=== PATIENT | male | born 1960 | race Caucasian/White ===

== ENCOUNTER 2016-12-01 15:55 | Emergency (ER) | payer OTHER | END 2016-12-01 17:52 | disposition left against medical advice (07) | LOC: UCCORT 15:55 | DX: M54.9 Dorsalgia, unspecified (principal); Z53.21 Procedure and treatment not carried out due to patient leaving prior to being seen by health care provider ==

== ENCOUNTER 2017-08-07 15:56 | Emergency (ER) | payer OTHER ==
[2017-08-07] MEDS ORDERED: Acetaminophen TAB* 325 MG PO ONE (16:32)
[2017-08-07 16:35] VITALS: BP 148/80
--- NOTE | 2017-08-07 16:51 | UC ---
FLU HPI - HPI Summary HPI Summary: Pt c/o sudden onset of fever, chills, body aches, cough and generalized malaise. - History of Current Complaint Chief Complaint: UCGeneralIllness Stated Complaint: CONGESTION,COUGH,HEADACHE,BODY ACHES Time Seen by Provider: 08/07/17 16:25 Hx Obtained From: Patient Onset/Duration: Sudden Onset, Lasting Hours Severity Currently: Moderate Severity Initially: Moderate Associated Signs & Symptoms: Positive: Fever, Myalgia, Cough Related Hx: Smoking - Allergy/Home Medications Allergies/Adverse Reactions: Allergies Allergy/AdvReac Type Severity Reaction Status Date / Time No Known Allergies Allergy Verified 08/07/17 16:22 PMH/Surg Hx/FS Hx/Imm Hx Previously Healthy: Yes - Surgical History Surgical History: Yes Surgery Procedure, Year, and Place: 06/2013 back surgery lumbar region - Family History Known Family History: Positive: Cardiac Disease - father, Hypertension - Social History Occupation: Employed Full-time Lives: With Family Alcohol Use: Rare Substance Use Type: None Smoking Status (MU): Heavy Every Day Tobacco Smoker Type: Cigarettes Amount Used/How Often: 1 ppd Have You Smoked in the Last Year: Yes Household Exposure Type: Cigarettes - Immunization History Most Recent Influenza Vaccination: 08/04/17 Review of Systems Constitutional: Fever, Chills, Fatigue Skin: Negative Eyes: Negative ENT: Negative Respiratory: Cough Cardiovascular: Negative Gastrointestinal: Nausea Genitourinary: Negative Motor: Negative Neurovascular: Negative Musculoskeletal: Myalgia Neurological: Headache Psychological: Negative Is Patient Immunocompromised?: No All Other Systems Reviewed And Are Negative: Yes Physical Exam Triage Information Reviewed: Yes Appearance: Ill-Appearing Vital Signs: Initial Vital Signs Temp 100.5 F 08/07/17 16:17 Pulse 85 08/07/17 16:17 Resp 16 08/07/17 16:17 BP 148/80 08/07/17 16:17 Pulse Ox 97 08/07/17 16:17 Vital Signs Reviewed: Yes Eye Exam: Normal Dental Exam: Normal Neck exam: Normal Respiratory Exam: Normal Cardiovascular Exam: Normal Musculoskeletal Exam: Normal Neurological Exam: Normal Psychological Exam: Normal Skin Exam: Normal Flu Course/Dx - Course Course Of Treatment: rapid: positive flu - Differential Dx/Diagnosis Differential Diagnosis/HQI/PQRI: Influenza, Upper Respiratory Infection Provider Diagnoses: Influenza Discharge - Discharge Plan Condition: Stable Disposition: HOME Patient Education Materials: Influenza (ED) Referrals: Yrn Mora MD [Primary Care Provider] - If Needed
== END 2017-08-07 16:55 | disposition home or self-care (01) ==
LOC: UCCORT 15:56
DX: J11.1 Influenza due to unidentified influenza virus with other respiratory manifestations (principal); Z72.0 Tobacco use
CPT/HCPCS: 87502; 99212; A9270-GY; G0463

== ENCOUNTER 2017-12-06 16:02 | Emergency (ER) | payer OTHER ==
[2017-12-06 16:47] VITALS: BP 130/79
--- NOTE | 2017-12-06 17:08 | UC ---
Respiratory Complaint HPI - HPI Summary HPI Summary: 57 yo WM who quit smoking 3 m ago c/o pleuritic cough with green sputum x 1 week , coughs incessantly at night and keeps him awake. Denies f/c - History of Current Complaint Chief Complaint: UCRespiratory Stated Complaint: COUGH Time Seen by Provider: 12/06/17 16:40 Hx Obtained From: Patient Onset/Duration: Lasting Days Severity Initially: Moderate Severity Currently: Moderate Pain Intensity: 5 Aggravating Factors: Nothing Associated Signs And Symptoms: Positive: Negative - Allergies/Home Medications Allergies/Adverse Reactions: Allergies Allergy/AdvReac Type Severity Reaction Status Date / Time No Known Allergies Allergy Verified 12/06/17 16:40 Home Medications: Home Medications Acetaminophen [Acetaminophen Extra Strength] 1,000 mg PO Q6H PRN 12/06/17 [ History Confirmed 12/06/17] Lisinopril TAB* [Prinivil TAB 10 MG*] 40 mg PO BID 12/06/17 [History Confirmed 12/06/17] Metoprolol Succinate XL TAB* [Toprol XL TAB*] 100 mg PO QAM 12/06/17 [History Confirmed 12/06/17] PMH/Surg Hx/FS Hx/Imm Hx Previously Healthy: Yes Respiratory History: COPD - Surgical History Surgical History: Yes Surgery Procedure, Year, and Place: [place]umber Fusion, 2012, [place] - Family History Known Family History: Positive: Cardiac Disease - father, Hypertension - Social History Alcohol Use: Rare Substance Use Type: None Smoking Status (MU): Former Smoker Type: Cigarettes Amount Used/How Often: 1 ppd Length of Time of Smoking/Using Tobacco: 1 - 1 1/2 PPD x 41 Years Have You Smoked in the Last Year: Yes When Did the Patient Quit Smoking/Using Tobacco: 08/2017 Household Exposure Type: Cigarettes - Immunization History Most Recent Influenza Vaccination: 08/04/17 Review of Systems Constitutional: Negative Skin: Negative Eyes: Negative Respiratory: Cough Cardiovascular: Negative Gastrointestinal: Negative Genitourinary: Negative Motor: Negative Neurovascular: Negative Musculoskeletal: Negative Neurological: Negative Psychological: Negative All Other Systems Reviewed And Are Negative: Yes Physical Exam Triage Information Reviewed: Yes Appearance: Pain Distress Vital Signs: Initial Vital Signs Temp 37.3 C 12/06/17 16:38 Pulse 76 12/06/17 16:38 Resp 16 12/06/17 16:38 BP 130/79 12/06/17 16:38 Pulse Ox 97 12/06/17 16:38 Vital Signs Reviewed: Yes Eye Exam: Normal ENT Exam: Normal Dental Exam: Normal Neck exam: Normal Neck: Positive: 1 Respiratory Exam: Normal Respiratory: Positive: No respiratory distress, Rhonchi - with cough. Negative : Crackles, Stridor, Wheezing Cardiovascular Exam: Normal Abdominal Exam: Normal Musculoskeletal Exam: Normal Neurological Exam: Normal Psychological Exam: Normal Skin Exam: Normal UC Diagnostic Evaluation - Laboratory O2 Sat by Pulse Oximetry: 97 Respiratory Course/Dx - Differential Dx/Diagnosis Provider Diagnoses: Bronchitis. Productive cough Discharge - Sign-Out/Discharge Documenting (check all that apply): Discharge/Admit/Transfer - Discharge Plan Condition: Stable Disposition: HOME Prescriptions: Azithromycin TAB* [Zithromax TAB (Z-ADILENE) 250 mg #6 tabs] 2 tab PO .TODAY, THEN 1 DAILY #1 adilene Guaifenesin/Dextromethorphan [Zyncof 400-20 mg Tablet] 1 tab PO BID 10 Days #20 tab Promethazine/Phenyleph/Codeine [Promethazine Vc/Codeine] 5 ml PO Q6HR PRN 7 Days #1 btl MDD 20 ML PRN Reason: Cough Patient Education Materials: Acute Bronchitis (ED) Referrals: Yrn Mora MD [Primary Care Provider] - - Billing Disposition and Condition Condition: STABLE Disposition: HOME
== END 2017-12-06 17:08 | disposition home or self-care (01) ==
LOC: UCCORT 16:02
DX: J40 Bronchitis, not specified as acute or chronic (principal); Z87.891 Personal history of nicotine dependence
CPT/HCPCS: 99212; G0463

== ENCOUNTER 2017-12-08 18:14 | Emergency (ER) | payer OTHER ==
[2017-12-08 19:38] VITALS: BP 166/68
--- NOTE | 2017-12-08 20:13 | UC ---
Throat Pain/Nasal David HPI - HPI Summary HPI Summary: c/o persistent dry cough despite cough syrup and zithromax, now on day 3. Denies fever or sputum production. - History of Current Complaint Chief Complaint: UCRespiratory Stated Complaint: SORE THROAT Time Seen by Provider: 12/08/17 20:05 Hx Obtained From: Patient Onset/Duration: Gradual Onset, Lasting Days Severity: Moderate Pain Intensity: 5 Cough: Nonproductive Associated Signs & Symptoms: Positive: Negative - Epiglottits Risk Factors Epiglottis Risk Factors: Negative - Allergies/Home Medications Allergies/Adverse Reactions: Allergies Allergy/AdvReac Type Severity Reaction Status Date / Time No Known Allergies Allergy Verified 12/08/17 19:40 PMH/Surg Hx/FS Hx/Imm Hx Cardiovascular History: Hypertension - Surgical History Surgical History: Yes Surgery Procedure, Year, and Place: [place] Fusion, 2012, [place] - Family History Known Family History: Positive: Cardiac Disease - father, Hypertension - Social History Alcohol Use: Rare Substance Use Type: None Smoking Status (MU): Former Smoker Type: Cigarettes Amount Used/How Often: 1 ppd Length of Time of Smoking/Using Tobacco: 1 - 1 1/2 PPD x 41 Years Have You Smoked in the Last Year: Yes When Did the Patient Quit Smoking/Using Tobacco: 08/2017 Household Exposure Type: Cigarettes - Immunization History Most Recent Influenza Vaccination: 08/04/17 Review of Systems Constitutional: Negative Respiratory: Cough All Other Systems Reviewed And Are Negative: Yes Physical Exam Triage Information Reviewed: Yes Appearance: No Pain Distress, Well-Nourished, Ill-Appearing Vital Signs: Initial Vital Signs Temp 98.4 F 12/08/17 19:32 Pulse 72 12/08/17 19:32 Resp 16 12/08/17 19:32 BP 166/68 12/08/17 19:32 Pulse Ox 95 12/08/17 19:32 Vital Signs Reviewed: Yes Eyes: Positive: Conjunctiva Clear ENT: Positive: Hearing grossly normal Neck: Positive: Supple, Nontender, No Lymphadenopathy Respiratory: Positive: Chest non-tender, Lungs clear, Normal breath sounds, No respiratory distress Cardiovascular: Positive: RRR, No Murmur, Pulses Normal, Brisk Capillary Refill Throat Pain/Nasal Course/Dx - Course Course Of Treatment: reactive airway disease to start flovent diskus as prescribed, continue current medications, f/u PCP in 1-2 weeks - Differential Dx/Diagnosis Provider Diagnoses: reactive airway disease Discharge - Sign-Out/Discharge Documenting (check all that apply): Discharge/Admit/Transfer - Discharge Plan Condition: Stable Disposition: HOME Patient Education Materials: Reactive Airways Disease (ED) Referrals: Yrn Mora MD [Primary Care Provider] - - Billing Disposition and Condition Condition: STABLE Disposition: HOME
== END 2017-12-08 20:25 | disposition home or self-care (01) ==
LOC: UCCORT 18:14
DX: J45.909 Unspecified asthma, uncomplicated (principal); Z87.891 Personal history of nicotine dependence
CPT/HCPCS: 87651; 99212; G0463

== ENCOUNTER 2018-08-01 07:26 | Emergency (ER) | payer OTHER ==
[2018-08-01 08:02] VITALS: BP 152/90
--- NOTE | 2018-08-01 08:47 | ED ---
Respiratory - HPI Summary HPI Summary: 58 yrold male with the complaint of sore throat, coughing, myalgias, chills. Onset yesterday. Symptoms are moderate. He denies runny nose. Denies sinus pain. Denies SOB, CP. The patient denies skin rash. He has no other complaints. - History of Current Complaint Chief Complaint: UCGeneralIllness Stated Complaint: HEADACHE,COUGH,NAUSEA Time Seen by Provider: 08/01/18 08:17 Pain Intensity: 5 - Allergy/Home Medications Allergies/Adverse Reactions: Allergies Allergy/AdvReac Type Severity Reaction Status Date / Time No Known Allergies Allergy Verified 12/08/17 19:40 PMH/Surg Hx/FS Hx/Imm Hx Endocrine/Hematology History: Denies: Hx Diabetes Cardiovascular History: Reports: Hx Hypertension - on medication Respiratory History: Denies: Hx Asthma - Surgical History Surgery Procedure, Year, and Place: [place]umber Fusion, 2012, [place] Infectious Disease History: No Infectious Disease History: Denies: Hx Clostridium Difficile, Hx Hepatitis, Hx Human Immunodeficiency Virus (HIV), Hx of Known/Suspected MRSA, Hx Shingles, Hx Tuberculosis, Hx Known/ Suspected VRE, Hx Known/Suspected VRSA, History Other Infectious Disease, Traveled Outside the [place] in Last 30 Days - Family History Known Family History: Positive: Cardiac Disease - father, Hypertension - Social History Occupation: Employed Full-time Alcohol Use: Rare Substance Use Type: Reports: None Smoking Status (MU): Former Smoker Type: Cigarettes Amount Used/How Often: 1 ppd Length of Time of Smoking/Using Tobacco: 1 - 1 1/2 PPD x 41 Years Have You Smoked in the Last Year: Yes Review of Systems Positive: Chills Positive: Sore Throat Positive: Cough Positive: Myalgia All Other Systems Reviewed And Are Negative: Yes Physical Exam Triage Information Reviewed: Yes Vital Signs On Initial Exam: Initial Vitals Temp Pulse Resp BP Pulse Ox 98.8 F 78 17 152/90 96 08/01/18 07:58 08/01/18 07:58 08/01/18 07:58 08/01/18 07:58 08/01/18 07:58 Vital Signs Reviewed: Yes Appearance: Positive: Well-Appearing, No Pain Distress Skin: Positive: Warm, Skin Color Reflects Adequate Perfusion Head/Face: Positive: Normal Head/Face Inspection Eyes: Positive: EOMI ENT: Positive: Pharyngeal erythema, TMs normal Neck: Positive: Nontender Respiratory/Lung Sounds: Positive: Clear to Auscultation, Breath Sounds Present Cardiovascular: Positive: RRR. Negative: Murmur Abdomen Description: Positive: Nontender Musculoskeletal: Positive: Strength/ROM Intact Neurological: Positive: Sensory/Motor Intact, Alert, Oriented to Person Place, Time, CN Intact II-III Psychiatric: Positive: Normal - Leonardo Coma Scale Best Eye Response: 4 - Spontaneous Best Motor Response: 6 - Obeys Commands Best Verbal Response: 5 - Oriented Coma Scale Total: 15 Diagnostics - Vital Signs Vital Signs Temp Pulse Resp BP Pulse Ox 08/01/18 07:58 98.8 F 78 17 152/90 96 - Laboratory Lab Statement: Any lab studies that have been ordered have been reviewed, and results considered in the medical decision making process. Disposition - Course Course Of Treatment: 58 yrold with Cough, URI. - Diagnoses Provider Diagnoses: Upper respiratory infection, Hypertension Discharge - Sign-Out/Discharge Documenting (check all that apply): Patient Departure All imaging exams completed and their final reports reviewed: No Studies - Discharge Plan Condition: Stable Disposition: HOME Patient Education Materials: Upper Respiratory Infection (ED), Hypertension (ED ) Referrals: Yrn Mora MD [Primary Care Provider] - 2 Days - Billing Disposition and Condition Condition: STABLE Disposition: Home
== END 2018-08-01 09:23 | disposition home or self-care (01) ==
LOC: UCCORT 07:26
DX: J06.9 Acute upper respiratory infection, unspecified (principal); I10 Essential (primary) hypertension; Z87.891 Personal history of nicotine dependence
CPT/HCPCS: 99211; G0463

== ENCOUNTER 2019-02-14 16:42 | Emergency (ER) | payer OTHER ==
[2019-02-14 17:49] VITALS: BP 127/81
--- NOTE | 2019-02-14 18:35 | UC ---
HPI Wound/Suture Re-check - HPI Summary HPI Summary: Pt presents for removal of sutures in right knee that were placed here on . Pt thinks he has 5 sutures. - History Of Current Complaint Chief Complaint: UCGeneralIllness Stated Complaint: Stitch removal Time Seen by Provider: 02/14/19 17:52 Hx Obtained From: Patient Onset/Duration: Sudden Onset Pain Intensity: 0 Pain Scale Used: 0-10 Numeric - Allergies/Home Medications Allergies/Adverse Reactions: Allergies Allergy/AdvReac Type Severity Reaction Status Date / Time No Known Allergies Allergy Verified 02/14/19 17:45 PMH/Surg Hx/FS Hx/Imm Hx Previously Healthy: Yes - Surgical History Surgical History: Yes Surgery Procedure, Year, and Place: [place] Fusion, 2012, [place] - Family History Known Family History: Positive: Cardiac Disease - father, Hypertension - Social History Occupation: Employed Full-time Lives: With Family Alcohol Use: Rare Substance Use Type: None Smoking Status (MU): Light Every Day Tobacco Smoker Type: Cigarettes Amount Used/How Often: 1/4 ppd Length of Time of Smoking/Using Tobacco: 1 - 1 1/2 PPD x 41 Years Have You Smoked in the Last Year: Yes When Did the Patient Quit Smoking/Using Tobacco: 08/2017 Household Exposure Type: Cigarettes - Immunization History Most Recent Influenza Vaccination: 08/04/17 Vaccination Up to Date: Yes Review of Systems All Other Systems Reviewed And Are Negative: Yes Constitutional: Positive: Negative Skin: Positive: Other - sutures intact. Eyes: Positive: Negative ENT: Positive: Negative Respiratory: Positive: Negative Cardiovascular: Positive: Negative Gastrointestinal: Positive: Negative Genitourinary: Positive: Negative Motor: Positive: Negative Neurovascular: Positive: Negative Musculoskeletal: Positive: Arthralgia - right knee, Edema - right knee slight swelling, Myalgia Neurological: Positive: Negative Psychological: Positive: Negative Is Patient Immunocompromised?: Yes Physical Exam Triage Information Reviewed: Yes Appearance: Well-Appearing Vital Signs: Initial Vital Signs Temp 97.9 F 02/14/19 17:46 Pulse 60 02/14/19 17:46 Resp 16 02/14/19 17:46 BP 127/81 02/14/19 17:46 Pulse Ox 99 02/14/19 17:46 Vital Signs Reviewed: Yes Eye Exam: Normal ENT Exam: Normal Dental Exam: Normal Neck exam: Normal Respiratory Exam: Normal Respiratory: Positive: No respiratory distress Musculoskeletal Exam: Normal Neurological Exam: Normal Psychological Exam: Normal Skin Exam: Normal - sutures intact and three knots are visible. Course/Dx - Course Course Of Treatment: three sutures were removed intact. skin adhesive and steri strips applied to keep laceration closed for continued healing. I was not able to find a total of 5 sutures. I removed three intact sutures. - Differential Dx - Laceration/Wound Differential Diagnoses: Suture Removal - Diagnosis Provider Diagnosis: Visit for suture removal Discharge - Sign-Out/Discharge Documenting (check all that apply): Patient Departure All imaging exams completed and their final reports reviewed: No Studies - Discharge Plan Condition: Stable Disposition: HOME Patient Education Materials: Steristrips (ED), Stitches Removal (ED) Referrals: Yrn Mora MD [Primary Care Provider] - If Needed - Billing Disposition and Condition Condition: STABLE Disposition: Home
== END 2019-02-14 18:10 | disposition home or self-care (01) ==
LOC: UCCORT 16:42
DX: Z48.02 Encounter for removal of sutures (principal); F17.210 Nicotine dependence, cigarettes, uncomplicated